=== PATIENT | female | born 1980 | race Caucasian/White ===

== ENCOUNTER 2020-02-01 21:20 | Emergency (ER) | payer OTHER ==
[~2020-02-01] VITALS: Ht 165.1 cm; Wt 123.8 kg
[2020-02-01] MEDS ORDERED: Imitrex100 MG PO (21:55)
[2020-02-01] MEDS ORDERED: NAPR500 PO (21:55)
[2020-02-01] MEDS ORDERED: AMIT75 PO (21:56)
[2020-02-01] MEDS ORDERED: EPIPEN 2-P0.3 MG/0.1 IM (21:57)
[2020-02-01] MEDS ORDERED: BENADRYL25 MG PO (21:57)
[2020-02-01] MEDS ORDERED: ALBU90OI INH (21:57)
[2020-02-01] MEDS ORDERED: SERT50 PO (21:58)
[2020-02-01] MEDS ORDERED: Amoxicillin875 MG PO (22:54)
== END 2020-02-01 23:19 | disposition home or self-care (01) ==
LOC: ER 21:20
DX: J06.9 Acute upper respiratory infection, unspecified (principal); H66.92 Otitis media, unspecified, left ear; J45.909 Unspecified asthma, uncomplicated; Z88.5 Allergy status to narcotic agent; Z88.8 Allergy status to other drugs, medicaments and biological substances; Z79.899 Other long term (current) drug therapy
CPT/HCPCS: 71045; 99284-25